=== PATIENT | male | born 1950 | race Caucasian/White ===

== ENCOUNTER 2016-02-28 21:10 | Emergency (ER) | payer OTHER ==
--- NOTE | 2016-02-28 21:21 | PROVIDER DOCUMENTATION ---
HPI-Cardiopulmonary Arrest - General Stated Complaint: cardiac arrest Time Seen by Provider: 02/28/16 21:13 Source: EMS Allergies/Adverse Reactions: Allergies Allergy/AdvReac Type Severity Reaction Status Date / Time Sulfa (Sulfonamide Allergy Mild RASH Verified 12/01/15 18:56 Antibiotics) [Sulfa(Sulfonamide Antibiotics)] spironolactone Allergy Unknown Unknown Verified 12/01/15 18:56 [From Aldactone] diphenhydramine HCl * Allergy Unknown Verified 12/01/15 18:56 [From Benadryl] adhesive AdvReac Severe RASH Verified 12/01/15 18:56 codeine [Codeine] AdvReac Mild jittery Verified 12/01/15 18:56 morphine AdvReac Mild make him Verified 12/01/15 18:56 see things Morpholine Analogues AdvReac DIZZINESS Verified 12/01/15 18:56 Home Medications: Temazepam [Restoril] 15 mg PO QHS 02/27/14 Allopurinol 100 mg PO DAILY 06/07/14 Hydroxyzine 25 mg PO HS PRN 06/07/14 Amiodarone [Cordarone] 200 mg PO DAILY 06/20/14 Fluoxetine HCl [Prozac] 20 mg PO QHS 06/20/14 Levothyroxine Sodium [Synthroid] 175 mcg PO DAILY 06/20/14 Dexlansoprazole [Dexilant] 60 mg PO DAILY 08/08/14 Midodrine [Proamatine] 10 mg PO DAILY 08/12/15 Calcium Acetate 2 tab PO DAILY 01/07/16 Carvedilol [Coreg] 6.25 mg PO DAILY 01/07/16 Digoxin [Lanoxin] 0.5 tab PO MoFr@0900 01/07/16 Magnesium Oxide [Magnesium] 400 mg PO BID 01/07/16 Vit B Comp C/Folic Acid/Vit D3 [Dialyvite 800 Plus D Wafer] 1 each PO DAILY - History of Present Illness-C/P Arrest Initial Comments: 66 y/o m presents to the ed in full cardiac arrest.per family the pt has not been feeling well over the past X 2 days. the pt is on dialysis and didn't go today bc he didn't feel well. per family she went to check on him and he stood up and collapsed. per ems pt was unresponsive and in asystole upon arrival. Reason for Code Blue?: full arrest Witnessed arrest?: Yes Noted by:: family Bystander CPR?: No CPR initiated before doctor arrival?: Yes Down-time before ACLS?: unknown Initial Findings: unresponsive, asystole Treatment initiated prior to doctor arrival?: Initiated CPR/thumper Similar Symptoms Previously?: No Recently seen or treated by another doctor?: No - Pre-hospital Treatment EMS Initial Findings:: unresponsive, other rhythm (asystole) - Pronouncement CPR discontinued. Patient pronounced at: 21:21 Family notified?: Yes Review of Systems - Adult - REVIEW OF SYSTEMS - ADULT ROS:: unobtainable per condition Constitutional: reports: no symptoms reported Eyes: reports: no symptoms reported Ears, Nose, Mouth & Throat: reports: no symptoms reported Cardiovascular: reports: other (asystole) Respiratory: reports: no symptoms reported Gastrointestinal: reports: no symptoms reported Genitourinary: reports: no symptoms reported Musculoskeletal: reports: no symptoms reported Integumentary: reports: no symptoms reported Neurological: reports: no symptoms reported Psychiatric: reports: no symptoms reported Endocrine: reports: no symptoms reported Hematologic/Lymphatic: reports: no symptoms reported Allergic/Immunologic: reports: no symptoms reported All Other Systems: Reviewed and Negative Past History - Adult - PAST MEDICAL HISTORY-ADULT Review of Records: reports: Old Records Reviewed, Nursing Assessment Review, Medications Reviewed Major Childhood Illnesses: reports: denies history Cardiovascular: reports: A-Fib, CHF, HTN (cardiomyapathy), hyperlipidemia, pacemaker, other (cardiomyopathy,ACID) Respiratory: reports: sleep apnea Gastrointestinal: reports: GERD Obstetrical/Gynecological: reports: denies history Genitourinary: reports: dialysis (peritoneal 4x/day), kidney disease, prostate cancer Musculoskeletal: reports: arthritis Neurological: reports: denies history Psychiatric: reports: anxiety, depression Endocrine/Immune: reports: thyroid disorder Other Conditions: reports: denies history - PRIOR SURGERIES/PROCEDURES Surgical/Procedure History: reports: pacemaker, indwelling device (AICD placement, rectal fistula placement), other (TURP, Hemorrhoids) - IMMUNIZATION STATUS Childhood Immunizations: See Nurse Assessment Flu Vaccine: See Nurse Assessment - FAMILY HISTORY Family History: reviewed, not pertinent - SOCIAL HISTORY Smoking: non-smoker Physical Exam-General - PHYSICAL EXAM-ADULT Initial Vital Signs Reviewed: Yes - CONSTITUTIONAL General Appearance: obtunded - EYES Eyes: other (fixed and dilated pupils) - CARDIOVASCULAR Cardiovascular: other (asystole) - SKIN Integumentary: pallor Progress - PLAN OF CARE/RESULTS Progress/Plan/Lab Results: initially the pt has been coding for 1 hour and ten minutes, Dr. Elkins stopped trying to revive pt after 13 minutes upon arrival. Time of 21:21 tonight. Departure - Departure Time of Disposition Order: 21:48 DIAGNOSIS: Asystole, Renal disease Disposition: 20 Certified Medical Emergency: Emergent Condition: Stable - Critical Care Note Total Time (mins): 15 Critical Care Statement: This patient required my direct personal management to treat or rule out processes, the absence of which, could potentiallly result in sudden, clinically significant life or limb threatening deterioration. Attestation - Scribe Verification/Attestation Scribe:: Thais Rodriguez Acting as Scribe for:: Nitin Elkins Scribe documention review:: This chart was documented by a scribe and accurately reflects the service the provider performed and the decisions made by the provider.
[2016-02-28 21:59] VITALS: BP 0/0
[2016-02-28] MEDS ORDERED: SODIUM BICARBONATE 8.4% ONE (23:00)
[2016-02-28] MEDS ORDERED: EPINEPHRINE SYRINGE ONE (23:00)
[2016-02-28] MEDS ORDERED: MAGNESIUM SULFATE ONE (23:00)
[2016-02-28] MEDS ORDERED: NS ONE (23:00)
== END 2016-02-28 21:21 | disposition expired ==
LOC: ED 21:10
DX: I46.9 Cardiac arrest, cause unspecified (principal); I12.0 Hypertensive chronic kidney disease with stage 5 chronic kidney disease or end stage renal disease; N18.6 End stage renal disease; I48.91 Unspecified atrial fibrillation; I50.9 Heart failure, unspecified; I10 Essential (primary) hypertension; I42.9 Cardiomyopathy, unspecified; E78.5 Hyperlipidemia, unspecified; Z79.899 Other long term (current) drug therapy; K21.9 Gastro-esophageal reflux disease without esophagitis; Z85.46 Personal history of malignant neoplasm of prostate; M19.90 Unspecified osteoarthritis, unspecified site; E07.9 Disorder of thyroid, unspecified; F41.9 Anxiety disorder, unspecified; F32.9 Major depressive disorder, single episode, unspecified; Z95.810 Presence of automatic (implantable) cardiac defibrillator; Z99.2 Dependence on renal dialysis; Z79.01 Long term (current) use of anticoagulants
CPT/HCPCS: 99285; J0171; J3475; J7030